=== PATIENT | male | born 1960 | race Caucasian/White ===

== ENCOUNTER 2021-03-27 14:26 | Inpatient (IN) | payer OTHER ==
[~2021-03-27] VITALS: Ht 165.1 cm; Wt 54.0 kg
[2021-03-27 15:24] LABS: BASOPHILS # (AUTO) 0.1 K/uL (0.0-0.2); BASOPHILS % (AUTO) 0.7 % (0.0-2.0); EOSINOPHILS % (AUTO) 2.3 % (0.0-6.0); HEMATOCRIT 33 % (39-51); HEMOGLOBIN 10.8 g/dL (13.5-17.5); LYMPHOCYTES # (AUTO) 1.7 K/uL (0.8-4.8); LYMPHOCYTES % (AUTO) 14.9 % (20.0-44.0); MEAN CORPUSCULAR HGB CONC 33 g/dl (31.0-36.0); MEAN CORPUSCULAR VOLUME 104 fL (80-96); MONOCYTES # (AUTO) 0.9 K/uL (0.1-1.30); MONOCYTES % (AUTO) 7.8 % (2.0-12.0); NEUTROPHILS # (AUTO) 8.4 K/uL (1.8-8.9); NEUTROPHILS % (AUTO) 74.3 % (43.0-81.0); PLATELET COUNT (AUTO) 227 K/uL (150-450); RED BLOOD CELL COUNT(AUTO) 3.14 MIL/uL (4.5-6.0); WHITE BLOOD COUNT (AUTO) 11.3 K/uL (4.3-11.0)
[2021-03-27] MEDS ORDERED: CEFEPIME 1 GM in IV D5W 50 ML IV ONE (15:30)
[2021-03-27] MEDS ORDERED: IV NS 0.9% 1,000 ML BAG IV ONE (15:30)
[2021-03-27] MEDS ORDERED: VANCOMYCIN 1 GM in IV D5W 250 ML IV ONE (15:30)
[2021-03-27] MEDS ORDERED: MAG355OR18 PO (15:54)
[2021-03-27] MEDS ORDERED: MULT-439 PO (15:54)
[2021-03-27] MEDS ORDERED: CHOL400T11 PO (15:54)
[2021-03-27] MEDS ORDERED: HYDR-4303 PO (15:54)
[2021-03-27] MEDS ORDERED: INSU100C10 SQ (15:54)
[2021-03-27] MEDS ORDERED: DABR75CA PO (15:54)
[2021-03-27] MEDS ORDERED: MELA3TAB41 PO (15:54)
[2021-03-27] MEDS ORDERED: CEFT2FRO2 IV (15:54)
[2021-03-27] MEDS ORDERED: FAMO20TA8 PO (15:54)
[2021-03-27] MEDS ORDERED: METF-442 PO (15:54)
[2021-03-27] MEDS ORDERED: TRAM2TAB PO (15:54)
[2021-03-27] MEDS ORDERED: ACET325T53 PO (15:54)
[2021-03-27 16:55] LABS: BILIRUBIN,URINE Negative (NEGATIVE); COLOR,URINE YELLOW (YELLOW); LEUKOCYTE ESTERASE ,URINE Negative (NEGATIVE); NITRITE, URINE Negative (NEGATIVE); PH,URINE 5.5 (5.0-8.0); PROTEIN,URINE 30 mg/dl (NEGATIVE); UGLUCOSE Negative (NEGATIVE); UROBILINOGEN,URINE 0.2 EU/dL (0.2)
[2021-03-27 17:10] LABS: PHENYTOIN (DILANTIN) 0.5 ug/ml (10.0-20.0)
[2021-03-27 17:15] LABS: BACTERIA,URINE Rare /HPF (None Seen); RBC,URINE NONE SEEN /HPF (0-2); SQUAMOUS EPITHELIAL CELL,UR Few /HPF (None Seen); WBC,URINE NONE SEEN /HPF (0-3)
[2021-03-27 17:17] LABS: CARBON DIOXIDE 15 mmol/L (21-32); CHLORIDE 105 mmol/L (98-107); CREATININE 0.8 mg/dL (0.6-1.3); GLUCOSE 150 mg/dL (74-106); POTASSIUM 3.3 mmol/L (3.5-5.1); SODIUM SERUM 141 mmol/L (136-145); UREA NITROGEN, BLOOD 9 mg/dL (7-18)
[2021-03-27 17:24] LABS: ALANINE AMINOTRANSFERASE 13 U/L (12-78); ALKALINE PHOSPHATASE 100 U/L (46-116); ASPARTATE AMINOTRANSFERASE 23 U/L (15-37); BILIRUBIN,DIRECT 0.2 mg/dL (0.0-0.2); BILIRUBIN,TOTAL 0.4 mg/dL (0.2-1.0); TOTAL PROTEIN, SERUM 6.8 g/dL (6.4-8.2)
--- NOTE | 2021-03-27 18:43 | NUR ---
COVID SWAB DONE AND SENT TO THE LAB
--- NOTE | 2021-03-27 18:45 | NUR ---
CALLED NURSING SUP FOR TELE BED.
--- NOTE | 2021-03-27 18:47 | NUR ---
MRI APPROVED BY DR. SHARIF,FEED MILL MANAGER NOTIFIED.
--- NOTE | 2021-03-27 19:05 | NUR ---
Pt bibra c/o seizure. pt aaox 3 breathing evenly and unlabored. Pt attached to monitor and pox. Pt has iv from facility in rt forearm. Upon assessment, pt has scar on head from craniotomy.pt given blanket and call light within reach
--- NOTE | 2021-03-27 19:09 | NUR ---
CALLED LAB FOR RAPID COVID SWAB
--- NOTE | 2021-03-27 19:19 | NUR ---
MRI CHECKLIST DONE
--- NOTE | 2021-03-27 19:25 | NUR ---
ANTIGEN SENT TO LAB
--- NOTE | 2021-03-27 19:30 | NUR ---
pt cleaned and needs met
--- NOTE | 2021-03-27 19:42 | NUR ---
taken to mri
--- NOTE | 2021-03-27 19:56 | NUR ---
TELE 311-2
[2021-03-27] MEDS ORDERED: MAG HYDROX/AL HYDROX/SIMETH 30 ML UDC PO PRN (20:00)
[2021-03-27] MEDS ORDERED: DEXTROSE 50%-WATER 50 ML DISP.SYRIN IV PRN (20:00)
[2021-03-27] MEDS ORDERED: Z GUARD REMEDY 2 OZ OINT TP PRN (20:00)
[2021-03-27] MEDS ORDERED: *INSULIN REGULAR(HUMULIN R)HUM 100 UNIT/ML VIAL SQ PRN (20:00)
[2021-03-27] MEDS ORDERED: ACETAMINOPHEN 325 MG TABLET PO PRN (20:00)
[2021-03-27] MEDS ORDERED: MORPHINE SULFATE INJ 2 MG/ML DISP.SYRIN IV PRN (20:00)
[2021-03-27] MEDS ORDERED: ONDANSETRON HCL/PF 4 MG/2 ML VIAL IVP PRN (20:00)
[2021-03-27] MEDS ORDERED: MAGNESIUM HYDROXIDE 30 ML UDC PO PRN (20:00)
[2021-03-27] MEDS ORDERED: LABETALOL 20 MG/4 ML VIAL IV PRN (20:00)
[2021-03-27] MEDS ORDERED: hydrALAZINE HCL IV 20 MG VIAL IV PRN (20:00)
[2021-03-27] MEDS ORDERED: LORAZEPAM INJ 2 MG/ML VIAL IV PRN (20:00)
--- NOTE | 2021-03-27 20:15 | NUR ---
REPORT CALLED TO JACKSPOOLERKAVON HUTTON. WILL TRANSPORT PT VIA ACLS PROTOCOL.
--- NOTE | 2021-03-27 20:20 | NUR ---
TELE 108
[2021-03-27] MEDS ORDERED: VANCOMYCIN HCL 1.25 GM in IV D5W 260 ML IV SCH (21:00)
[2021-03-27 21:05] VITALS: BP 111/71
--- NOTE | 2021-03-27 21:05 | NUR ---
PHP WEB DEVELOPER Opening/Admitting Notes Patient was brought to the unit via [facility] at about 2105 accompanied by Nurse Ney. Patient was transferred from straight from the gurney to the bed. Patient's unable to ambulate. Patient was oriented to the staff and his room. Patient's alert and oriented x3. Patient is on room air with no respiratory distress noted. Patient's connected to a tele monitor showing sinus rhythm with a heart rate of 75bmp. Patient has an IV access on his RAC gauge #18, which is running D51/2NS at 100ml/hr. Safety measures in place: Bed locked, bed alarm on, side rails up x3, and call light within reach. Will continue to monitor the patient.
[2021-03-27] MEDS: LEVETIRACETAM (500MG) 1,000 MG in IV NS 0.9% 100 ML IV SCH (21:39)
[2021-03-27 21:48] LABS: ALBUMIN 2.6 g/dL (3.4-5.0); BILIRUBIN,TOTAL 0.4 mg/dL (0.2-1.0); CALCIUM, SERUM 8.4 mg/dL (8.5-10.1); CREATININE 0.5 mg/dL (0.6-1.3); POTASSIUM 3.7 mmol/L (3.5-5.1)
[2021-03-27] MEDS: IV D5/0.45 NACL 1,000 ML IV PRN (22:33)
--- NOTE | 2021-03-27 23:16 | NUR ---
REPAIRER SCREEN CRUSHER Notes Patient's blood sugar at 2316 was 87mg/dL. Will continue to monitor the patient.
[2021-03-27] MEDS: BLOOD SUGAR DIAGNOSTIC 1 EACH STRIP VI SCH (23:17)
[2021-03-28] MEDS: ENOXAPARIN SODIUM 40 MG/0.4 ML DISP.SYRIN SQ SCH ×2 (01:04→20:17)
[2021-03-28] MEDS: VANCOMYCIN 1 GM in IV D5W 250 ML IV SCH ×2 (04:19→18:37)
[2021-03-28 04:27] LABS: BASOPHILS % (AUTO) 0.6 % (0.0-2.0); EOSINOPHILS % (AUTO) 6.1 % (0.0-6.0); HEMATOCRIT 28 % (39-51); HEMOGLOBIN 9.5 g/dL (13.5-17.5); LYMPHOCYTES % (AUTO) 33.6 % (20.0-44.0); MEAN CORPUSCULAR HGB CONC 34 g/dl (31.0-36.0); MEAN CORPUSCULAR VOLUME 102 fL (80-96); MONOCYTES # (AUTO) 0.7 K/uL (0.1-1.30); MONOCYTES % (AUTO) 11.8 % (2.0-12.0); NEUTROPHILS # (AUTO) 2.8 K/uL (1.8-8.9); NEUTROPHILS % (AUTO) 47.9 % (43.0-81.0); PLATELET COUNT (AUTO) 192 K/uL (150-450); WHITE BLOOD COUNT (AUTO) 5.9 K/uL (4.3-11.0)
[2021-03-28 04:49] LABS: ALBUMIN 2.6 g/dL (3.4-5.0); BILIRUBIN,TOTAL 0.4 mg/dL (0.2-1.0); CALCIUM, SERUM 8.6 mg/dL (8.5-10.1); CREATININE 0.3 mg/dL (0.6-1.3); MAGNESIUM 1.6 mg/dL (1.8-2.4); PHOSPHORUS 3.3 mg/dL (2.5-4.9); POTASSIUM 3.4 mmol/L (3.5-5.1); TOTAL PROTEIN, SERUM 6.1 g/dL (6.4-8.2)
[2021-03-28 05:12] VITALS: BP 92/64
--- NOTE | 2021-03-28 06:44 | NUR ---
DEOILING MACHINE OPERATOR Closing Notes Patient was last seen sleeping in bed. Patient's alert and oriented x3. Patient is on room air with no respiratory distress noted. Patient's connected to a tele monitor showing sinus rhythm with a heart rate of 66bmp. Patient has an IV access on his RAC gauge #18, which is currently running D51/2NS at 100ml/hr. No acute distress noted at this time. Safety measures in place: Bed locked, bed alarm on, side rails up x3, and call light within reach. Will endorse care to the day shift nurse.l
--- NOTE | 2021-03-28 07:25 | NUR ---
RN NOTE PATIENT AWAKE IN BED, ALERT AND ORIENTED X3, ABLE TO VERBALIZE NEEDS, ON ROOM AIR WITH O2 SAT OF 98%, TELE MONITOR ON SR HR OF 81 AT THIS TIME CONTINENT ON BOWEL AND BLADDER USES THE URINAL, CALL LIGHT WITHIN REACH, BED WHEELS LOCK, BED ALARM ON, WILL CONTINUE TO MONITOR PATIENT.
[2021-03-28] MEDS: BLOOD SUGAR DIAGNOSTIC 1 EACH STRIP VI SCH ×4 (07:53→21:26)
[2021-03-28] MEDS: INSULIN REGULAR, HUMAN 100 UNIT/ML 3 ML VIAL SQ PRN ×4 (07:53→21:30)
[2021-03-28 08:00] VITALS: BP 102/75
[2021-03-28] MEDS: LEVETIRACETAM (500MG) 1,000 MG in IV NS 0.9% 100 ML IV SCH (09:14)
[2021-03-28] MEDS: MULTIVIT W/MINERALS 1 TAB TABLET PO SCH (09:16)
[2021-03-28] MEDS: PANTOPRAZOLE 40 MG VIAL IV SCH (09:16)
[2021-03-28] MEDS: CHOLECALCIFEROL (VITAMIN D 3) 400 UNIT TABLET PO SCH (09:16)
[2021-03-28] MEDS: IV D5/0.45 NACL 1,000 ML IV PRN ×2 (09:32→18:39)
[2021-03-28] MEDS: CEFTRIAXONE 1 G in IV D5W 50 ML IV SCH (10:16)
--- NOTE | 2021-03-28 10:24 | NUR ---
RN NOTE PATIENT SEEN BY David JONES LACTIC ACID OF 2.9 NO NEW ORDER AWARE, MD ORDERED FOR PATIENT FOR ABNORMAL HEARTH RHYTHM, NO COMPLAINS OF CHEST PAIN HEART RATE OF 81, ORDERS NOTED AND CARRIED OUT, WILL CONTINUE TO MONITOR. Addendum: 03/28/21 at 1309 by RAMSEY ATWOOD RN David HAWKINS
--- NOTE | 2021-03-28 10:36 | NUR ---
WOUND CARE CONSULT: REVIEWED CHART, NURSING DOCUMENTATION AND PHOTOS WHICH INDICATE FRAGILE SKIN WITH MULTIPLE AREAS OF DISCOLORATION, ESPECIALLY UPPER EXTREMITIES AND RASHES TO GROIN FOLDS, PERINEUM AND LOWER BUTTOCKS, PRESENT ON ADMISSION. RECOMMENDATIONS MADE FOR SKIN PROTECTION. DISCUSSED WITH NURSING STAFF. MD IN AGREEMENT WITH PLAN OF CARE.
[2021-03-28] MEDS: Magnesium 1GM/D5W 100ML PREMIX 100 ML IV SCH ×2 (10:47→11:46)
[2021-03-28 12:00] VITALS: BP 109/64
[2021-03-28] MEDS ORDERED: GADOTERATE MEGLUMINE 5 MMOL/10 ML VIAL IV ONE (12:23)
[2021-03-28] MEDS: POTASSIUM CL. PREMIX PERIPHER. 50 ML IV SCH ×2 (13:01→14:04)
[2021-03-28] MEDS: DEXAMETHASONE SOD PHOSPHATE 4 MG/ML VIAL IV SCH ×2 (14:16→21:17)
--- NOTE | 2021-03-28 15:07 | NUR ---
CHARGE NURSE NOTES PER SETH WYATT FAREBOX REPAIRER - OBTAIN MEDICAL RECORDS OF PATIENT FROM [facility] TEL NO [phone]. FAX NO [phone]. OR [facility] TEL NO [phone] FAX NO [phone]
[2021-03-28 16:00] VITALS: BP 101/67
[2021-03-28] MEDS: METRONIDAZOLE 500MG/ NS 100ML 500 MG in PREMIX 1 EA IV SCH ×2 (16:53→23:43)
[2021-03-28] MEDS: CLOTRIMAZOLE 1% 15 GM TUBE TP SCH (17:32)
--- NOTE | 2021-03-28 19:00 | NUR ---
RN NOTE PATIENT AWAKE IN BED, ALERT AND ORIENTED X3, ABLE TO VERBALIZE NEEDS, ON ROOM AIR WITH O2 SAT OF 98%, TELE MONITOR ON SR HR OF 70 AT THIS TIME CONTINENT ON BOWEL AND BLADDER USES THE URINAL, IV ON LEFT AC PATENT INFUSING WELL, ON ATB THERAPY NO ASE NOTED, REPLACE POTASSIUM AND MAGNESIUM ORDERED. CALL LIGHT WITHIN REACH, BED WHEELS LOCK, BED ALARM ON, WILL CONTINUE TO MONITOR PATIENT.
--- NOTE | 2021-03-28 19:00 | NUR ---
received patient in his bed noted confused was given report he pulls his IVs out left AC IV g22 in place wrapped with a bulky towel. instructed him not to remoove, within seconds he was rmoving. rewrapped. will watch him closely this 12 hours. he is friendly and speaks latvian son at the bedside to visit
[2021-03-28 20:00] VITALS: BP 115/74
[2021-03-28] MEDS: LEVETIRACETAM (500MG) 1,500 MG in IV NS 0.9% 100 ML IV SCH (21:20)
[2021-03-29] VITALS: BP 103/66
[2021-03-29 04:00] VITALS: BP 109/62
--- NOTE | 2021-03-29 04:31 | NUR ---
CLOSING NOTES: ASLEEP AT THIS TIME. UNEVENTFUL NIGHT WILL USE THE URINAL AT TIMES HE IS INCONTINENT KNOWN FOR REMOVING HIS IV/SL NOT THIS 12 HOURS. PROTECTED THE LT AC IV WITH A WRAPPED TOWEL AND HAD HIM LAY HIS ARM ON A PILLOW WILL ASSIST THE NURSE WHEN HE IS TURNED AND BEING REPOSITIONED NO SEIZURES THIS 12 HOURS CONFUSED CITIZEN OF [place] SPEAKING WS VISITED BY HIS SON
[2021-03-29 05:32] LABS: BASOPHILS % (AUTO) 0.2 % (0.0-2.0); HEMATOCRIT 29 % (39-51); HEMOGLOBIN 9.8 g/dL (13.5-17.5); LYMPHOCYTES # (AUTO) 1.3 K/uL (0.8-4.8); LYMPHOCYTES % (AUTO) 33.2 % (20.0-44.0); MEAN CORPUSCULAR HGB CONC 34 g/dl (31.0-36.0); MEAN CORPUSCULAR VOLUME 103 fL (80-96); MONOCYTES # (AUTO) 0.2 K/uL (0.1-1.30); MONOCYTES % (AUTO) 6.4 % (2.0-12.0); NEUTROPHILS # (AUTO) 2.3 K/uL (1.8-8.9); NEUTROPHILS % (AUTO) 60.2 % (43.0-81.0); PLATELET COUNT (AUTO) 206 K/uL (150-450); RED BLOOD CELL COUNT(AUTO) 2.85 MIL/uL (4.5-6.0); WHITE BLOOD COUNT (AUTO) 3.8 K/uL (4.3-11.0)
[2021-03-29 05:47] LABS: CALCIUM, SERUM 8.8 mg/dL (8.5-10.1); CARBON DIOXIDE 23 mmol/L (21-32); CHLORIDE 107 mmol/L (98-107); CREATININE 0.5 mg/dL (0.6-1.3); GLUCOSE 194 mg/dL (74-106); MAGNESIUM 1.7 mg/dL (1.8-2.4); POTASSIUM 3.9 mmol/L (3.5-5.1); SODIUM SERUM 141 mmol/L (136-145); UREA NITROGEN, BLOOD 5 mg/dL (7-18)
[2021-03-29] MEDS: VANCOMYCIN 1 GM in IV D5W 250 ML IV SCH ×3 (05:50→21:42)
--- NOTE | 2021-03-29 07:34 | NUR ---
RN NOTE PATIENT AWAKE IN BED, BREATHING EVEN AND UNLABORED, ALERT AND ORIENTED X3, ABLE TO VERBALIZE NEEDS, ON ROOM AIR WITH O2 SAT OF 98%, TELE MONITOR ON SR HR OF 81 AT THIS TIME. CONTINENT ON BOWEL AND BLADDER USES THE URINAL, AFEBRILE, LEFT AC IV PATENT INFUSING WELL, CALL LIGHT WITHIN REACH, BED WHEELS LOCK, BED ALARM ON, WILL CONTINUE TO MONITOR PATIENT.
[2021-03-29] MEDS: BLOOD SUGAR DIAGNOSTIC 1 EACH STRIP VI SCH ×4 (07:54→21:39)
[2021-03-29] MEDS: INSULIN REGULAR, HUMAN 100 UNIT/ML 3 ML VIAL SQ PRN ×3 (07:57→16:32)
[2021-03-29 08:00] VITALS: BP 99/69
[2021-03-29] MEDS: MULTIVIT W/MINERALS 1 TAB TABLET PO SCH (08:05)
[2021-03-29] MEDS: PANTOPRAZOLE 40 MG VIAL IV SCH (08:05)
[2021-03-29] MEDS: DEXAMETHASONE SOD PHOSPHATE 4 MG/ML VIAL IV SCH ×2 (08:05→16:05)
[2021-03-29] MEDS: CHOLECALCIFEROL (VITAMIN D 3) 400 UNIT TABLET PO SCH (08:05)
[2021-03-29] MEDS: METRONIDAZOLE 500MG/ NS 100ML 500 MG in PREMIX 1 EA IV SCH ×3 (08:05→23:42)
[2021-03-29] MEDS: CLOTRIMAZOLE 1% 15 GM TUBE TP SCH ×2 (08:09→16:01)
[2021-03-29] MEDS: IV D5/0.45 NACL 1,000 ML IV PRN (09:09)
[2021-03-29 09:22] LABS: BILIRUBIN,DIRECT 0.1 mg/dL (0.0-0.2)
[2021-03-29] MEDS: LEVETIRACETAM (500MG) 1,500 MG in IV NS 0.9% 100 ML IV SCH ×2 (09:38→21:43)
[2021-03-29] MEDS: CEFTRIAXONE 1 G in IV D5W 50 ML IV SCH (09:57)
[2021-03-29] MEDS: Magnesium 1GM/D5W 100ML PREMIX 100 ML IV SCH ×2 (10:39→11:55)
[2021-03-29] MEDS ORDERED: MAGNESIUM OXIDE 400 MG TABLET PO STA (11:02)
--- NOTE | 2021-03-29 11:16 | NUR ---
RN NOTE SEEN BY KARINE MARTINEZ, AWARE OF PATIENT CURRENT CONDITION. PATIENT LACTIC ACID OF 3.1 MD NOTIFIED.
[2021-03-29 12:00] VITALS: BP 110/73
[2021-03-29 16:00] VITALS: BP_SYST 128; BP_SYST 91; BP_DIAS 52; BP_DIAS 53
--- NOTE | 2021-03-29 19:17 | NUR ---
RN NOTE PATIENT AWAKE IN BED, BREATHING EVEN AND UNLABORED, ALERT AND ORIENTED X2 WITH EPISODE OF FORGETFULNESS, ABLE TO VERBALIZE NEEDS, ON ROOM AIR WITH O2 SAT OF 98%, TELE MONITOR ON SR HR OF 81 AT THIS TIME. CONTINENT ON BOWEL AND BLADDER USES THE URINAL, AFEBRILE, LEFT HAND IV PATENT INFUSING WELL D51/2 NS @100 CC/HR TOLERATING WELL, FOLLOWED UPT WITH [facility] FOR THE RELEASE OF MEDICAL RECOR WAS INFORMED NOT UNTIL WEDNESDAY, WILL FOLLOW UP ON WEDNESDAY, CALL LIGHT WITHIN REACH, BED WHEELS LOCK, BED ALARM ON, WILL CONTINUE TO MONITOR PATIENT. WILL ENDORSE TO NOC SHIFT
--- NOTE | 2021-03-29 19:30 | NUR ---
RN NOTE REPORT RECEIVED FROM RAMSEY JACOBSON, PATIENT IN BED, AAO X 3-4, IN NO S/SX OF ACUTE DISTRESS AT THIS TIME, BREATHING EVEN AND UNLABORED, SATURATION AT 96% ON ROOM AIR, SR ON THE MONITOR, HR IS 73. NOTED IV SITE AT R HAND 22G, PATENT AND FLUSHING WELL, NO S/S OF INFECTION OR INFILTRATION WITH IV FLUID OF D5 1/2 NS INFUSING AT 100 ML/HR. PATIENT IS CONTINENT, URINAL AT BEDSIDE. SAFETY MEASURES IMPLEMENTED. PATIENT BED ALARM IS ON. HEAD OF BED ELEVATED. BED IS LOCKED, IN LOWEST POSITION AND SIDE RAILS UP. CALL LIGHT WITHIN REACH OF THE PATIENT. WILL CONTINUE TO MONITOR AND REASSESS FOR ANY CHANGES.
[2021-03-29 20:00] VITALS: BP 111/74
[2021-03-29] MEDS ORDERED: IV D5/0.45 NACL 1,000 ML IV PRN (20:00)
--- NOTE | 2021-03-29 20:00 | NUR ---
RN NOTE NOTED NEGATIVE COVID PCR, PT TRANSFERED FROM RM 108 TO RM 111 BED #1. SUPERVISOR MOLD CONSTRUCTION AWARE.
[2021-03-29] MEDS: ENOXAPARIN SODIUM 40 MG/0.4 ML DISP.SYRIN SQ SCH (21:47)
[2021-03-30] VITALS: BP 117/60
[2021-03-30 04:00] VITALS: BP 95/64
[2021-03-30 06:37] LABS: BASOPHILS % (AUTO) 0.3 % (0.0-2.0); EOSINOPHILS % (AUTO) 0.1 % (0.0-6.0); HEMATOCRIT 27 % (39-51); HEMOGLOBIN 9.3 g/dL (13.5-17.5); LYMPHOCYTES # (AUTO) 1.6 K/uL (0.8-4.8); LYMPHOCYTES % (AUTO) 24.6 % (20.0-44.0); MEAN CORPUSCULAR HGB CONC 34 g/dl (31.0-36.0); MEAN CORPUSCULAR VOLUME 101 fL (80-96); MONOCYTES # (AUTO) 0.6 K/uL (0.1-1.30); MONOCYTES % (AUTO) 9.8 % (2.0-12.0); NEUTROPHILS # (AUTO) 4.2 K/uL (1.8-8.9); NEUTROPHILS % (AUTO) 65.2 % (43.0-81.0); PLATELET COUNT (AUTO) 196 K/uL (150-450); WHITE BLOOD COUNT (AUTO) 6.5 K/uL (4.3-11.0)
[2021-03-30 07:09] LABS: CREATININE 0.4 mg/dL (0.6-1.3); MAGNESIUM 1.7 mg/dL (1.8-2.4); POTASSIUM 3.1 mmol/L (3.5-5.1)
--- NOTE | 2021-03-30 07:19 | NUR ---
RN NOTE PT ASLEEP IN BED, NO ACUTE DISTRESS NOTED, VANCOMYCIN DOSE FOR 0600 NOT YET ADMINISTERED AWAITING VANCO TROUGH RESULT, ENDORSED TO KAMALA JACOBSON FOR CONTINUATION OF CARE.
[2021-03-30 07:32] LABS: CALCIUM, SERUM 8.2 mg/dL (8.5-10.1)
[2021-03-30 08:00] VITALS: BP 114/61
[2021-03-30] MEDS: CEFTRIAXONE 1 G in IV D5W 50 ML IV SCH (08:03)
[2021-03-30] MEDS: VANCOMYCIN 1 GM in IV D5W 250 ML IV SCH ×3 (08:03→23:22)
[2021-03-30] MEDS: METRONIDAZOLE 500MG/ NS 100ML 500 MG in PREMIX 1 EA IV SCH ×3 (08:03→23:48)
[2021-03-30] MEDS: BLOOD SUGAR DIAGNOSTIC 1 EACH STRIP VI SCH ×4 (08:19→23:00)
[2021-03-30] MEDS: CHOLECALCIFEROL (VITAMIN D 3) 400 UNIT TABLET PO SCH (08:48)
[2021-03-30] MEDS: DEXAMETHASONE SOD PHOSPHATE 4 MG/ML VIAL IV SCH ×2 (08:48→18:31)
[2021-03-30] MEDS: MULTIVIT W/MINERALS 1 TAB TABLET PO SCH (08:48)
[2021-03-30] MEDS: LEVETIRACETAM (500MG) 1,500 MG in IV NS 0.9% 100 ML IV SCH (08:49)
[2021-03-30] MEDS: CLOTRIMAZOLE 1% 15 GM TUBE TP SCH ×2 (08:51→18:28)
[2021-03-30] MEDS: PANTOPRAZOLE 40 MG/PACK PACK PO SCH (08:55)
[2021-03-30] MEDS: POTASSIUM CHLORIDE 20 MEQ POWDER PACKET PO SCH ×2 (09:52→11:02)
[2021-03-30] MEDS: Magnesium 1GM/D5W 100ML PREMIX 100 ML IV SCH ×2 (09:53→11:02)
[2021-03-30] MEDS: INSULIN REGULAR, HUMAN 100 UNIT/ML 3 ML VIAL SQ PRN ×3 (11:12→23:36)
[2021-03-30] MEDS ORDERED: DEXA4TAB PO (11:49)
[2021-03-30] MEDS ORDERED: LEVE500T20 PO (11:49)
[2021-03-30 12:00] VITALS: BP 100/58
[2021-03-30 16:00] VITALS: BP 89/67
[2021-03-30 20:00] VITALS: BP 118/69
[2021-03-30] MEDS: LEVETIRACETAM SOL (5 ML) 100 MG/ML UDC GT SCH (23:23)
[2021-03-30] MEDS: ENOXAPARIN SODIUM 40 MG/0.4 ML DISP.SYRIN SQ SCH (23:25)
[2021-03-31] VITALS: BP 97/62
--- NOTE | 2021-03-31 02:54 | NUR ---
PATIENT BLOOD SUGAR WAS 170 RECEIVED 3 UNITS OF REG INSULIN S.Q. PATIENT ON MONITOR SINUS. ON ROOM AIR NO SIGNS OF SEIZURES THESE HOURS.
[2021-03-31 04:00] VITALS: BP 100/64
[2021-03-31] MEDS: VANCOMYCIN 1 GM in IV D5W 250 ML IV SCH ×2 (05:47→13:32)
[2021-03-31 06:37] LABS: CALCIUM, SERUM 8.1 mg/dL (8.5-10.1); CREATININE 0.4 mg/dL (0.6-1.3); MAGNESIUM 1.7 mg/dL (1.8-2.4); POTASSIUM 3.3 mmol/L (3.5-5.1)
--- NOTE | 2021-03-31 07:18 | NUR ---
RN NOTE PATIENT AWAKE IN BED, BREATHING EVEN AND UNLABORED, ALERT AND ORIENTED X2 WITH EPISODE OF CONFUSION ABLE TO VERBALIZE NEEDS, ON ROOM AIR WITH O2 SAT OF 98%, TELE MONITOR ON SR HR OF 70 AT THIS TIME. CONTINENT ON BOWEL AND BLADDER USES THE URINAL, AFEBRILE, LEFT HAND IV PATENT INFUSING WELL, CALL LIGHT WITHIN REACH, BED WHEELS LOCK, BED ALARM ON, WILL CONTINUE TO MONITOR PATIENT
[2021-03-31 08:00] VITALS: BP 97/66
[2021-03-31] MEDS: BLOOD SUGAR DIAGNOSTIC 1 EACH STRIP VI SCH ×3 (08:03→17:05)
[2021-03-31] MEDS: INSULIN REGULAR, HUMAN 100 UNIT/ML 3 ML VIAL SQ PRN ×2 (08:03→12:11)
[2021-03-31] MEDS: METRONIDAZOLE 500MG/ NS 100ML 500 MG in PREMIX 1 EA IV SCH ×2 (08:06→16:04)
[2021-03-31] MEDS ORDERED: POTASSIUM CHLORIDE 20 MEQ TAB.PRT.SR PO SCH (08:30)
[2021-03-31] MEDS: Magnesium 1GM/D5W 100ML PREMIX 100 ML IV SCH ×2 (09:11→10:56)
[2021-03-31] MEDS: MULTIVIT W/MINERALS 1 TAB TABLET PO SCH (09:15)
[2021-03-31] MEDS: LEVETIRACETAM SOL (5 ML) 100 MG/ML UDC GT SCH (09:15)
[2021-03-31] MEDS: CHOLECALCIFEROL (VITAMIN D 3) 400 UNIT TABLET PO SCH (09:15)
[2021-03-31] MEDS: PANTOPRAZOLE 40 MG/PACK PACK PO SCH (09:15)
[2021-03-31] MEDS: DEXAMETHASONE SOD PHOSPHATE 4 MG/ML VIAL IV SCH ×2 (09:16→16:05)
[2021-03-31] MEDS: CLOTRIMAZOLE 1% 15 GM TUBE TP SCH ×2 (09:33→16:12)
[2021-03-31] MEDS: CEFTRIAXONE 1 G in IV D5W 50 ML IV SCH (10:15)
[2021-03-31 12:00] VITALS: BP 97/66
--- NOTE | 2021-03-31 15:30 | NUR ---
RN NOTE PATIENT FOR DISCHARGE TO [facility], GAVE REPORT TO MANJIT JACOBSON REGARDING PATIENT CURRENT STATUS AND MEDICATION, PATIENT REFUSED BODY CHECK FOR DISCHARGE PATIENT ALERT AND ORIENTED X3, WITH SON AT BEDSIDE, [facility] RN AWARE, DISCHARGE PAPERS DONE, WILL CONTINUE TO MONITOR.
[2021-03-31 16:00] VITALS: BP 101/67
--- NOTE | 2021-03-31 17:30 | NUR ---
RN NOTE PATIENT REPORT GIVEN TO [facility], PATIENT ALERT AND ORIENTED X4, BREATHING EVEN AND UNLABORED, NOT IN DISTRESS VTS WNL. PATIENT TRANSFERRED FROM BED TO [facility].
== END 2021-03-31 16:00 | DRG 53 ==
LOC: ER 14:37 → TELE1 20:24
PROVIDERS: ADMIT Internal Medicine; ATTEND Internal Medicine
DX: G40.909 Epilepsy, unspecified, not intractable, without status epilepticus (principal); G93.6 Cerebral edema; G06.0 Intracranial abscess and granuloma; A41.9 Sepsis, unspecified organism; E83.42 Hypomagnesemia; E11.9 Type 2 diabetes mellitus without complications; D64.9 Anemia, unspecified; E87.2 Acidosis; G93.89 Other specified disorders of brain; G81.90 Hemiplegia, unspecified affecting unspecified side; J32.9 Chronic sinusitis, unspecified; E87.6 Hypokalemia; K74.60 Unspecified cirrhosis of liver; I10 Essential (primary) hypertension; Z85.841 Personal history of malignant neoplasm of brain; Z20.822 Contact with and (suspected) exposure to COVID-19; Z79.4 Long term (current) use of insulin; Z86.61 Personal history of infections of the central nervous system
CPT/HCPCS: 36415; 70450-TC; 70553-TC; 71045-TC; 80048-TC; 80053-TC; 80076-TC; 80164-TC; 80184; 80185-TC; 80202-TC; 81001; 82248-TC; 82962-TC; 83605-TC; 83735-TC; 84100-TC; 84484-TC; 85025-TC; 85730-TC; 87040-TC; 87081-TC; 87086-TC; 92526; 92611-TC; 93307-TC; 95819-TC; 97112-TC; 97530-TC; A4216; A9575; C9113; C9803; G0378; J0692; J0696; J1100; J1650; J1815; J1953; J3370; J3475; J3480; J3490; J7030; J7042; J7050; J7060; U0003